=== PATIENT | male | born 1985 | race Two or more races ===

== ENCOUNTER 2020-12-07 17:06 | Emergency (ER) | payer OTHER ==
[~2020-12-07] VITALS: Ht 162.6 cm; Wt 90.7 kg
[2020-12-07 17:08] VITALS: BP 135/94
== END 2020-12-07 19:01 | disposition home or self-care (01) ==
LOC: ER 17:06
DX: S83.91XA Sprain of unspecified site of right knee, initial encounter (principal); X50.1XXA Overexertion from prolonged static or awkward postures, initial encounter; Y93.89 Activity, other specified; Y92.89 Other specified places as the place of occurrence of the external cause; Y99.8 Other external cause status
CPT/HCPCS: 73562

== ENCOUNTER 2021-11-09 18:58 | Emergency (ER) | payer OTHER ==
[~2021-11-09] VITALS: Ht 165.1 cm; Wt 82.0 kg
[2021-11-09] MEDS ORDERED: KETOROLAC TROMETH 60MG/2ML VIAL IM ONE (22:45)
[2021-11-09] MEDS ORDERED: DexAMETHasone SOD PHOS 10MG/1ML VIAL INJ IM ONE (22:45)
[2021-11-10 02:44] VITALS: BP 140/92
== END 2021-11-10 02:53 | disposition home or self-care (01) ==
LOC: ER 18:58
DX: R51.9 Headache, unspecified (principal)
CPT/HCPCS: 96372; 99284; J1100; J1885